=== PATIENT | female | born 1970 | race Two or more races ===

== ENCOUNTER 2017-08-14 11:57 | Emergency (ER) | payer MEDICAID, OTHER ==
[~2017-08-14] VITALS: Ht 157.5 cm; Wt 82.6 kg
[2017-08-14] MEDS ORDERED: cloNIDine HCL 0.1 MG TAB ONE (12:05)
[2017-08-14] MEDS ORDERED: cloNIDine HCL 0.1 MG TAB PO ONE (12:15)
[2017-08-14] MEDS ORDERED: LORazepam 0.5 MG TAB PO ONE (12:15)
[2017-08-14 12:35] LABS: Urine Bacteria NONE SEEN /hpf (None Seen); Urine Blood Negative /uL (Negative); Urine Specific Gravity 1.008 (1.001-1.035); Urine WBC 1 /hpf (0 - 5)
[2017-08-14 12:37] LABS: Basophils # (auto) 0 uL; Basophils % (auto) 0.4 % (0.0-2.0); Eosinophils # (auto) 0.1 uL; Eosinophils % (auto) 1.5 % (0.0-7.0); Hematocrit 46.4 % (36.0-46.0); Hemoglobin 15.7 g/dL (12.2-16.2); Lymphocytes # (auto) 1.5 uL; Lymphocytes % (auto) 20.7 % (10.0-50.0); Mean Corpuscular Hemoglobin 31.2 pg (28.0-32.0); Mean Corpuscular Hgb Conc. 33.8 g/dL (32.0-36.0); Mean Corpuscular Volume 92.4 fL (80.0-100.0); Monocytes # (auto) 0.5 uL; Monocytes % (auto) 6.3 % (0.0-12.0); Neutrophils # (auto) 5.2 uL; Neutrophils % (auto) 71.1 % (37.0-80.0); Platelet Count (auto) 208 10^3/uL (140-450); Red Blood Cells 5.02 10^6/uL (4.0-5.20); Red Cell Distribution Width 12.4 % (11.8-14.3); White Blood Cell 7.3 10^3/uL (4.4-10.8)
[2017-08-14 12:53] LABS: Alanine Aminotransferase 57 U/L (13-56); Anion Gap 7 (5-15); Aspartate Aminotransferase 26 U/L (15-37); BUN/Creatinine Ratio 13.3; Blood Urea Nitrogen 16 mg/dL (7-18); Calcium 8.4 mg/dL (8.5-10.1); Carbon Dioxide 26 mmol/L (21-32); Chloride 105 mmol/L (98-107); GFR African American 62 mL/min; GFR Non-African American 52 mL/min; Glucose 185 mg/dL (74-106); Potassium 3.8 mmol/L (3.5-5.1); Sodium 138 mmol/L (136-145)
[2017-08-14 12:58] LABS: Alkaline Phosphatase 98 U/L (45-117); Bilirubin, Total 0.5 mg/dL (0.2-1.0); Total Protein 8.1 g/dL (6.4-8.2)
[2017-08-14 13:40] VITALS: BP 136/87
== END 2017-08-14 13:29 | disposition home or self-care (01) ==
LOC: ER 11:57
DX: I10 Essential (primary) hypertension (principal)
CPT/HCPCS: 36415; 80053; 81001; 84484; 85025; 93005

== ENCOUNTER 2017-10-17 20:58 | Emergency (ER) | payer MEDICAID ==
[~2017-10-17] VITALS: Ht 157.5 cm; Wt 82.6 kg
[~2017-10-17 20:58] MED LIST: HYDR-4683 PO; LEVO500T21 PO; METF500T PO; METO25TA5 PO; METR500T PO
[2017-10-17] MEDS ORDERED: cloNIDine HCL 0.1 MG TAB ONE (22:04)
[2017-10-17] MEDS ORDERED: cloNIDine HCL 0.1 MG TAB PO ONE (22:15)
[2017-10-18 01:38] LABS: Urine Bacteria NONE SEEN /hpf (None Seen); Urine Blood Negative /uL (Negative); Urine Specific Gravity 1.008 (1.001-1.035); Urine WBC <1 /hpf (0 - 5)
[2017-10-18] MEDS ORDERED: MAGNESIUM CITRATE SOLUTION 300 ML BTL PO ONE (05:00)
[2017-10-18 06:00] VITALS: BP 148/78
== END 2017-10-18 05:00 | disposition home or self-care (01) ==
LOC: ER 20:58
DX: R10.9 Unspecified abdominal pain (principal); K59.00 Constipation, unspecified; E11.9 Type 2 diabetes mellitus without complications; I10 Essential (primary) hypertension; E78.5 Hyperlipidemia, unspecified; Z90.49 Acquired absence of other specified parts of digestive tract; Z90.710 Acquired absence of both cervix and uterus; Z79.899 Other long term (current) drug therapy
CPT/HCPCS: 74176; 81001

== ENCOUNTER 2022-07-14 15:33 | Emergency (ER) | payer MEDICAID ==
[~2022-07-14] VITALS: Ht 157.5 cm; Wt 82.3 kg
[~2022-07-14 15:33] MED LIST changes: +ERY05OO OP; -HYDR-4683 PO; +HYDR-4833 PO; -LEVO500T21 PO; +LEVO500T31 PO
[2022-07-14 16:38] VITALS: BP 135/79
[2022-07-14] MEDS ORDERED: FLUORESCEIN SOD OPTH TEST STRIP OP ONE (17:00)
[2022-07-14] MEDS ORDERED: TOBR0.3S OP (17:06)
== END 2022-07-14 17:47 | disposition home or self-care (01) ==
LOC: ER 15:35
DX: S05.01XA Injury of conjunctiva and corneal abrasion without foreign body, right eye, initial encounter (principal); E11.9 Type 2 diabetes mellitus without complications; E78.5 Hyperlipidemia, unspecified; I10 Essential (primary) hypertension; Z90.710 Acquired absence of both cervix and uterus; Z79.899 Other long term (current) drug therapy; X58.XXXA Exposure to other specified factors, initial encounter; Y93.89 Activity, other specified; Y92.89 Other specified places as the place of occurrence of the external cause; Y99.8 Other external cause status
CPT/HCPCS: 82962